=== PATIENT | male | born 1970 | race Caucasian/White ===

== ENCOUNTER 2020-08-20 17:49 | Emergency (ER) | payer SELFPAY ==
[2020-08-20 18:01] VITALS: BP 156/99; PULSE 107; RESP 18; TEMP 36.7; O2SAT 99; BMI 25.8
[2020-08-20 20:40] VITALS: BP 183/83; PULSE 93; RESP 16; TEMP 37.6; O2SAT 99
[2020-08-20] MEDS: Silver Nitrate Applicator STICK..EA. 1 APPL TOPICAL (21:27)
[2020-08-20] MEDS: Tranexamic Acid 1,000 MG/10 ML VIAL 500 MG INTRANASAL (21:31)
--- NOTE | 2020-08-20 21:33 | ED.GENADULT ---
HPI - General Adult General Chief complaint: General Medical Stated complaint: NOSE BLEED Time Seen by Provider: 08/20/20 20:53 Source: patient Mode of arrival: ambulatory Limitations: no limitations History of Present Illness HPI narrative: 49-year-old male who presents emergency department for evaluation of right nares nose bleed. He states that the bleeding started this morning and he has blood at least 3 times. States that prior coming to the emergency department was bleeding a large amount of blood and swallowing blood clots. Patient states that a similar problem and the left in areas 1 year prior and was treated in a local emergency department. He that at that time the bleeding stops and he did not need any nasal packing. He was told that he had high blood pressure but never followed up with a PCP. The patient has not noticed any easy bruisability or other bleeding. He denied fever, chills, nausea, vomiting, chest pain or shortness of breath. The patient does drink a significant amount of alcohol daily. States that he drinks a blood like it is and 5-6 nips of alcohol daily. Related Data Previous Rx's Medication Instructions Recorded cephalexin [Keflex] 500 mg PO QID #28 cap 08/20/20 chlordiazepoxide HCl 50 mg PO Q6H PRN 4 Days #32 cap 08/20/20 Allergies Allergy/AdvReac Type Severity Reaction Status Date / Time No Known Allergies Allergy Verified 08/20/20 18:03 Review of Systems Review of Systems: Yes all other systems are reviewed and are negative ENT: Reports Normal hearing present Neurologic: Reports Normal hearing present and Reports Abnormal speech present [facility] Past Medical History [facility] Narrative: The patient has no medical problems and does not taking any medications. He is . He denies tobacco use. He drinks 8 blood lytes per day in 5-6 nips of alcohol per day. He denies drug use. Social History Social History Advance Directives: No Advance Directives Information Provided: Yes Physical Exam Vital Signs: Vital Signs: Last Vital Signs Temp 99.6 F 08/20/20 20:40 Pulse 93 08/20/20 20:40 Resp 16 08/20/20 20:40 BP 183/83 H 08/20/20 20:40 Pulse Ox 99 08/20/20 20:40 Body Mass Index 25.8 Const: General: cooperative, anxious and other (Tremulous) Orientation/consciousness: oriented to person and oriented to place HENMT: Head: Yes normal to inspection, Yes normocephalic and Yes atraumatic Ears: hearing grossly normal bilaterally and external ears normal General nose exam: Normal external nose present, No nasal polyps present, Normal septum present (Right nares, actively bleeding vessel on in the anterior nasal septum), no nasal discharge noted and Epistaxis present Face and sinus: Yes normal facial exam Mouth: Normal oral and palatal mucosa present Teeth and gingiva: dentition normal Throat: Yes posterior oropharynx normal Eyes: General: appearance normal, both eyes and all related structures Neck: Neck: Yes normal visual inspection and Yes no lymphadenopathy Skin: General skin exam: no rashes or lesions noted and other (No ecchymosis) Neuro: General: oriented to person and oriented to place Cranial nerves: Yes CN's II-XII intact bilaterally and Yes Normal hearing present Cognition (Neuro): normal cognition Speech: Abnormal speech present Extrem: General: Yes normal to inspection Psych: Appearance: well kempt Mental Status: mental status grossly normal Speech and movement: Normal speech and movement present Affect: Anxious affect present Attitude: cooperative Thought process: Normal thought process present Thought content: Normal thought content present Insight: Good insight present (Psych) Judgement: Good judgement present (Psych) Course Course Course Narrative: 49-year-old male who presents the emergency department for evaluation of right naris epistaxis. The patient has no past medical history does not take any medications however he does have significant daily alcohol use. The patient was hypertensive on presentation but I do not think that this is the cause of his epistaxis. On exam the patient does have an actively bleeding vessel on the right anterior nasal septum. The patient was cauterized with 5 silver nitrate sticks with some improvement of bleeding. He was packed with TXA soaked gauze for 30 minutes. His right naris was packed with a 5.5 cm rhino rocket balloon gauze inflated to 5 cc of air. 2235: The patient's bleeding seems to have resolved with the above treatment. The patient's laboratory evaluation is consistent with his alcohol use disorder. The patient has a low platelet count of 799614, slight elevated INR of 1.2, elevated AST and ALT of 190 and 91, elevated alk-phos of 143 and elevated bilirubin of 2.4. I did discuss this with the patient and the need to stop drinking. Patient is concerned that he is going to get very anxious and tremulous if he stops drinking and he is not interested in pursuing outpatient detox. The patient will be started on Librium 50 mg 4 times a day for 5 days. He will also be started on Keflex 500 mg 4 times a day for 7 days for prophylaxis secondary to the nasal packing/rhino rocket. The patient was advised to follow up with our ENT physician in 4 days for re-evaluation and have the nasal packing removed. Procedures Epistaxis Control Time Out Performed: No Nostril: Yes right Nose prepped with: Yes other (Tranexamic acid 500 mg soaked cotton phlinths) Direct inspection: Yes anterior source identified (Right anterior nasal septum, pulsating bleeding vessel) Direct inspection method: Yes nasal speculum and Yes headlamp Clots removed by: Yes blowing nose Epistaxis treatment: Yes TXA soaked gauze and Yes silver nitrate cautery (Anterior nasal septum was treated with 5 silver nitrate sticks) Results of treatment: Yes bleeding controlled Complications: Yes none Medical Decision Making Lab Data Result diagrams: 08/20/20 21:39 08/20/20 21:39 Labs: Lab Results 08/20/20 08/20/20 08/20/20 Range/Units 21:39 21:39 21:39 WBC 5.7 (4.8-10.8) X10*3/uL RBC 4.27 L (4.60-5.80) X10*6/uL Hgb 15.6 (14.0-18.0) g/dl Hct 44.7 (42-52) % MCV 104.7 H (80-98) fL MCH 36.5 H (27.0-33.0) pg MCHC 34.9 (31.0-36.0) g/dl RDW 12.3 (11.0-16.0) % Plt Count 121 L (160-400) X10*3/uL MPV 10.4 (9.4-12.4) fL Immature Gran % (Auto) 0.7 H (0.0-0.4) % Neut % (Auto) 76.8 H (45-73) % Lymph % (Auto) 11.5 L (20-40) % [place] % (Auto) 7.3 (2-11) % Eos % (Auto) 2.3 (0-4) % Baso % (Auto) 1.4 (0-2) % Lymph # (Auto) 0.7 L (1.2-4.9) X10*3/uL [place] # (Auto) 0.4 (0.1-1.2) X10*3/uL Eos # (Auto) 0.1 (0.0-0.4) X10*3/uL Baso # (Auto) 0.1 (0.0-0.2) X10*3/uL Abs Immat Gran (auto) 0.04 H (0.00-0.03) X10*3/uL Absolute Neuts (auto) 4.3 (2.0-8.3) X10*3/uL Absolute Nucleated RBC 0.000 (0.0-0.012) X10*3/uL Nucleated RBC % (auto) 0.0 (0.0-0.2) /100WBC Smear Tech's Comments VERIFIED PT 14.8 H (10.8-13.0) SEC INR 1.2 H (0.9-1.1) APTT 40.2 H (24.1-38.0) SEC Sodium 138 (135-145) mmol/L Potassium 4.1 (3.3-5.1) mmol/l Chloride 99 (96-108) mmol/L Carbon Dioxide 25 (22-29) mmol/L Anion Gap 18 (12-20) BUN 9 (9-16) mg/dL Creatinine 0.83 (0.5-1.4) mg/dL Estim Creat Clear Calc 109.9 Estimated GFR > 60 Random Glucose 155 H (60-115) mg/dL Calcium 8.4 (8.4-10.2) mg/dL Total Bilirubin 2.4 H (0.0-1.0) mg/dL AST 190 H (5-37) U/L ALT 91 H (0-40) U/L Alkaline Phosphatase 143 H (39-117) U/L Total Protein 8.2 H (6.5-8.0) g/dL Albumin 4.0 (3.5-5.0) g/dL Discharge Plan Discharge Clinical Impression: Acute anterior epistaxis, Alcohol use disorder AH (alcoholic hepatitis) Qualifiers: Ascites presence: unspecified Qualified Code(s): K70.10 - Alcoholic hepatitis without ascites Patient Disposition: Home, Self-Care Instructions: Nosebleed (ED), Alcoholic Hepatitis (ED) Additional Instructions: You had a bleeding blood vessel located the right anterior nasal septum (the front part of the nose that separates the 2 nasal cavities) You were treated with TXA which helps stops bleeding I also cauterized the anterior nasal septum with 5 silver nitrate sticks. Your nose was packed with a 5.5 cm rhino rocket (this is a special piece of gauze with a balloon in the center). The balloon was inflated with 5 cc of air. Your blood work is consistent with alcoholic hepatitis/transaminitis. Your drinking too much and it is starting to affect your liver. It is important that you stop drinking. I wrote a prescription for Librium 50 mg 4 times a day for 5 days to try to help you with your alcohol withdrawal symptoms. You should consider going to an alcohol detox program as well. Take Keflex 500 mg 4 times a day for 7 days. This is an antibiotic to prevent you from getting an infection from the rhino rocket nasal packing. The nasal packing needs to be removed by an ears nose and throat surgeon. Contact our ENT doctor tomorrow to make follow-up appointment within 4 days. Please return to the emergency department if you are bleeding around the nasal packing. Prescriptions: New cephalexin [Keflex] 500 mg capsule 500 mg PO QID Qty: 28 RF: 0 chlordiazepoxide HCl 25 mg capsule 50 mg PO Q6H PRN (Reason: alcohol withdrawal) 4 Days Qty: 32 RF: 0 Referrals: Steve Barker [Physician] - 3 days (Right anterior nasal septal bleed, silver nitrate cautery, rhino rocket, needs re-evaluation and removal of rhino rocket in 3-4 days)
[2020-08-20 21:44] LABS: Basophils Absolute Auto 0.1 X10*3/uL (0.0-0.2); Basophils Percent Auto 1.4 % (0-2); Eosinophils Absolute Auto 0.1 X10*3/uL (0.0-0.4); Eosinophils Percent Auto 2.3 % (0-4); Hematocrit 44.7 % (42-52); Hemoglobin 15.6 g/dl (14.0-18.0); Imm Gran Abs Auto 0.04 X10*3/uL (0.00-0.03); Imm Gran Pct Auto 0.7 % (0.0-0.4); Lymphocytes Absolute Auto 0.7 X10*3/uL (1.2-4.9); Lymphocytes Percent Auto 11.5 % (20-40); MANUAL DIFF FLAG SCAN; Mean Corpuscular HGB Conc 34.9 g/dl (31.0-36.0); Mean Corpuscular Hemoglobin 36.5 pg (27.0-33.0); Mean Corpuscular Volume 104.7 fL (80-98); Mean Platelet Volume 10.4 fL (9.4-12.4); Monocytes Absolute Auto 0.4 X10*3/uL (0.1-1.2); Monocytes Percent Auto 7.3 % (2-11); Neutrophils Absolute Auto 4.3 X10*3/uL (2.0-8.3); Neutrophils Percent Auto 76.8 % (45-73); Platelet Count 121 X10*3/uL (160-400); Red Blood Count 4.27 X10*6/uL (4.60-5.80); Red Cell Distribution Width 12.3 % (11.0-16.0); SCAN SMEAR FLAG 1; White Blood Count 5.7 X10*3/uL (4.8-10.8)
[2020-08-20 21:52] LABS: INTERNATIONAL NORM RATIO 1.2 (0.9-1.1); Prothrombin Time 14.8 SEC (10.8-13.0)
[2020-08-20 21:54] LABS: Partial Thromboplastin Time 40.2 SEC (24.1-38.0)
[2020-08-20 21:55] LABS: SLIDE REVIEW VERIFIED
[2020-08-20 22:09] LABS: Alanine Aminotransferase 91 U/L (0-40); Alkaline Phosphatase 143 U/L (39-117); Anion Gap 18 (12-20); Aspartate Amino Transferase 190 U/L (5-37); Bilirubin Total 2.4 mg/dL (0.0-1.0); Blood Urea Nitrogen 9 mg/dL (9-16); Calcium 8.4 mg/dL (8.4-10.2); Carbon Dioxide 25 mmol/L (22-29); Chloride 99 mmol/L (96-108); Creatinine Clr Calc Pharmacy 109.9; Estimated Glomerular Filt Rate > 60; Glucose Random 155 mg/dL (60-115); Potassium 4.1 mmol/l (3.3-5.1); Sodium 138 mmol/L (135-145); Total Protein 8.2 g/dL (6.5-8.0)
[2020-08-20] MEDS: cephALEXin 500 MG CAPSULE PO (22:27)
--- NOTE | 2020-08-20 22:28 | PC.NURSE ---
Pt medicated per OCT. Pt is CAOx4, speaking full sentences, reports minimal pain to balloon in right nostril. MD at bedside discussing plan of care at this time.
[2020-08-20 22:35] VITALS: BP 188/96; PULSE 94; RESP 16
== END 2020-08-20 23:07 | disposition home or self-care (01) ==
PROVIDERS: Emergency Provider Emergency Medicine Emergency Medical Services
DX: R04.0 Epistaxis (principal); K70.10 Alcoholic hepatitis without ascites
CPT/HCPCS: 30901; 36415; 80053; 85025; 85610; 85730; 99284

== ENCOUNTER 2020-08-21 15:07 | Emergency (ER) | payer OTHER, SELFPAY ==
[2020-08-21 18:06] VITALS: BP 173/77; PULSE 73; RESP 20; TEMP 36.1; O2SAT 97; BMI 25.1
[2020-08-21 18:25] LABS: Basophils Absolute Auto 0.1 X10*3/uL (0.0-0.2); Basophils Percent Auto 1.1 % (0-2); Imm Gran Abs Auto 0.04 X10*3/uL (0.00-0.03); Lymphocytes Absolute Auto 0.8 X10*3/uL (1.2-4.9); MANUAL DIFF FLAG SCAN; Mean Corpuscular Hemoglobin 35.8 pg (27.0-33.0); PLT CLUMP 1; Red Cell Distribution Width 12.2 % (11.0-16.0); SCAN SMEAR FLAG 1
[2020-08-21 18:27] LABS: Eosinophils Percent Auto 0.4 % (0-4); Hematocrit 44.4 % (42-52); Hemoglobin 15.2 g/dl (14.0-18.0); Imm Gran Pct Auto 0.5 % (0.0-0.4); Lymphocytes Percent Auto 11.1 % (20-40); Mean Corpuscular HGB Conc 34.2 g/dl (31.0-36.0); Mean Corpuscular Volume 104.5 fL (80-98); Mean Platelet Volume 10.9 fL (9.4-12.4); Monocytes Absolute Auto 0.8 X10*3/uL (0.1-1.2); Monocytes Percent Auto 10.7 % (2-11); Neutrophils Absolute Auto 5.6 X10*3/uL (2.0-8.3); Neutrophils Percent Auto 76.2 % (45-73); Platelet Count 123 X10*3/uL (160-400); Red Blood Count 4.25 X10*6/uL (4.60-5.80); White Blood Count 7.4 X10*3/uL (4.8-10.8)
[2020-08-21 18:46] LABS: SLIDE REVIEW VERIFIED
[2020-08-21 18:51] LABS: Anion Gap 16 (12-20); Blood Urea Nitrogen 15 mg/dL (9-16); Calcium 9.3 mg/dL (8.4-10.2); Carbon Dioxide 25 mmol/L (22-29); Chloride 100 mmol/L (96-108); Creatinine Clr Calc Pharmacy 109.4; Estimated Glomerular Filt Rate > 60; Glucose Random 133 mg/dL (60-115); Potassium 4.4 mmol/l (3.3-5.1); Sodium 137 mmol/L (135-145)
[2020-08-21 21:10] VITALS: BP 185/85; PULSE 82; RESP 16; TEMP 36.8; O2SAT 100
--- NOTE | 2020-08-21 21:27 | ED.GENADULT ---
HPI - General Adult General Chief complaint: General Medical Stated complaint: nose bleed Time Seen by Provider: 08/21/20 21:09 Source: patient Mode of arrival: ambulatory Limitations: no limitations History of Present Illness HPI narrative: Patient comes to the emergency room complaining of a nosebleed. Patient was seen here yesterday for the same issue, at this time patient has a rhino rocket inserted in his right nostril. Patient states this morning it started bleeding around the rhino rocket. At this time patient is not bleeding, but patient says that if he wiggles rhino rocket, he sees blood coming out again. Patient states that he did not leaf size picker the prescribed antibiotics MD complaint: Epistaxis Related Data Previous Rx's Medication Instructions Recorded cephalexin [Keflex] 500 mg PO QID #28 cap 08/20/20 chlordiazepoxide HCl 50 mg PO Q6H PRN 4 Days #32 cap 08/20/20 Allergies Allergy/AdvReac Type Severity Reaction Status Date / Time No Known Allergies Allergy Verified 08/20/20 18:03 Review of Systems Review of Systems: Constitutional : No Weight loss, No Fever, No Chills, No Night Sweats, No Fatigue, No Malaise ENT/Mouth : No Hearing loss, No Ear Pain, No Nasal Congestion, No Sinus Pain, No Hoarseness, No sore throat, Kevin rocket in right nostril with dry blood, no active bleeding. No Swallowing Difficulty Eyes: No Eye Pain, No Swelling, No Redness, No Foreign Body, No Discharge, No Vision Changes Cardiovascular : No Chest Pain, No SOB, No Dyspnea on Exertion, No Orthopnea, No Edema, No Palpitations Respiratory : No Cough, No Sputum, No Wheezing, No Smoke Exposure, No Dyspnea Gastrointestinal : No Nausea, No Vomiting, No Diarrhea, No Constipation, No abdominal Pain, No Hematochezia, No Melena Genitourinary : no irregular bleeding, No Dysuria, No Urinary Frequency, No Hematuria, No Urinary Incontinence, No Urgency, No Flank Pain, No Urinary Flow Changes, No Hesitancy Musculoskeletal : No joint pain, No Myalgias, No Joint Swelling Skin : No Skin Lesions, No rash Neuro : No Weakness, No Numbness, No Paresthesias, No Loss of Consciousness, No Dizziness, No Headache Psych : No Anxiety/Panic, No Depression, No SI/HI/AH/VH, No Social Issues, Heme/Lymph: No Bruising, No Bleeding,No Lymphadenopathy Endocrine : No Polyuria, No Polydipsia, No Temperature Intolerance PMF Past Medical History Medical History Alcohol abuse Social History Social History Alcohol intake: current Alcohol intake frequency: 3 or more drinks per day Alcohol type: beer Smoking Status: Never smoker Smoked in Last 30 Days: No Use of substances other than those prescribed or required for medical reasons: No Advance Directives: No Advance Directives Information Provided: Yes Physical Exam Vital Signs: Vital Signs: Last Vital Signs Temp 98.3 F 08/21/20 21:10 Pulse 82 08/21/20 21:10 Resp 16 08/21/20 21:10 BP 185/85 H 08/21/20 21:10 Pulse Ox 100 08/21/20 21:10 Body Mass Index 25.1 Appearance: Alert. Oriented X3. No acute distress. Eyes: Pupils equal, round and reactive to light. ENT: Pharynx normal. Rhino rocket in right nostril, no active bleeding Neck: Normal inspection. Neck supple. No lymph nodes noted. No crepitus CVS: Normal heart rate and rhythm. Pulses normal. Normal S1 and S2 Respiratory: No respiratory distress. Breath sounds normal. No Wheezing. No rales Abdomen: Soft and nontender. No rigidity. No distention. good BS x4 Skin: Skin warm and dry. Normal skin color. Normal skin turgor. Extremities: No lower extremity edema. No lower extremity edema. No Lacerations. No Rash Neuro: Oriented X 3. No motor deficit. No sensory deficit. Moving all extermities. No slurred speech. Course Course Course Narrative: Patient states that he cannot tolerate a rhino rocket, it was removed, no active bleeding. Afrin was sprayed twice in his nostril on the right side, no bleeding. Patient is going home without the rhino rocket. Patient will be taking the rest of the Afrin home, he was taught how to use it in case he has mild nasal bleeding. If patient has bleeding that he can not control, patient instructed to return to the emergency room immediately. Patient feeling better Medical Decision Making Lab Data Result diagrams: 08/21/20 18:10 08/21/20 18:10 Labs: Lab Results 08/21/20 08/21/20 08/21/20 Range/Units 18:10 18:10 18:10 WBC 7.4 (4.8-10.8) X10*3/uL RBC 4.25 L (4.60-5.80) X10*6/uL Hgb 15.2 (14.0-18.0) g/dl Hct 44.4 (42-52) % MCV 104.5 H (80-98) fL MCH 35.8 H (27.0-33.0) pg MCHC 34.2 (31.0-36.0) g/dl RDW 12.2 (11.0-16.0) % Plt Count 123 L (160-400) X10*3/uL MPV 10.9 (9.4-12.4) fL Immature Gran % (Auto) 0.5 H (0.0-0.4) % Neut % (Auto) 76.2 H (45-73) % Lymph % (Auto) 11.1 L (20-40) % [place] % (Auto) 10.7 (2-11) % Eos % (Auto) 0.4 (0-4) % Baso % (Auto) 1.1 (0-2) % Lymph # (Auto) 0.8 L (1.2-4.9) X10*3/uL [place] # (Auto) 0.8 (0.1-1.2) X10*3/uL Eos # (Auto) 0.0 (0.0-0.4) X10*3/uL Baso # (Auto) 0.1 (0.0-0.2) X10*3/uL Abs Immat Gran (auto) 0.04 H (0.00-0.03) X10*3/uL Absolute Neuts (auto) 5.6 (2.0-8.3) X10*3/uL Absolute Nucleated RBC 0.000 (0.0-0.012) X10*3/uL Nucleated RBC % (auto) 0.0 (0.0-0.2) /100WBC Smear Tech's Comments VERIFIED Hold Blue Top SEE NOTE Sodium 137 (135-145) mmol/L Potassium 4.4 (3.3-5.1) mmol/l Chloride 100 (96-108) mmol/L Carbon Dioxide 25 (22-29) mmol/L Anion Gap 16 (12-20) BUN 15 D (9-16) mg/dL Creatinine 0.86 (0.5-1.4) mg/dL Estim Creat Clear Calc 109.4 Estimated GFR > 60 Random Glucose 133 H (60-115) mg/dL Calcium 9.3 D (8.4-10.2) mg/dL Discharge Plan Discharge Clinical Impression: Acute anterior epistaxis Patient Disposition: Home, Self-Care Instructions: Nosebleed (ED) Additional Instructions: You may use Afrin to control small nosebleeds. If your nose starts bleeding again and you cannot control it with Afrin and pressure, please return to the emergency room or call 911. At this time, you will no longer need the antibiotic. Prescriptions: No Action cephalexin [Keflex] 500 mg capsule 500 mg PO QID Qty: 28 RF: 0 chlordiazepoxide HCl 25 mg capsule 50 mg PO Q6H PRN (Reason: alcohol withdrawal) 4 Days Qty: 32 RF: 0
[2020-08-21] MEDS: Oxymetazoline HCl 0.05 % Nasal 15 ML SPRAY 2 SPRAY NOSTRIL-B (21:45)
== END 2020-08-22 00:11 | disposition home or self-care (01) ==
PROVIDERS: Emergency Medicine; Emergency Provider Emergency Medicine
DX: R04.0 Epistaxis (principal); F10.10 Alcohol abuse, uncomplicated
CPT/HCPCS: 36415; 80048; 85025; 99283; 99284